=== PATIENT | male | born 1970 | race Caucasian/White ===

== ENCOUNTER 2017-09-11 05:40 | Day surgery (SDC) | payer OTHER ==
[~2017-09-11] VITALS: Ht 177.8 cm; Wt 115.6 kg
[~2017-09-11 05:40] MED LIST: MULTIVITAMIN1 EAC2 PO
[2017-09-11 06:08] VITALS: BP 131/78
[2017-09-11] MEDS ORDERED: NORCO 5/3251 TABLET PO (10:39)
[2017-09-11 12:30] VITALS: BP 102/58
[2017-09-11 16:18] VITALS: BP 106/66
[2017-09-11 20:00] VITALS: BP 112/59
[2017-09-11 23:39] VITALS: BP 106/60
[2017-09-12 04:50] VITALS: BP 108/62
[2017-09-12 07:19] VITALS: BP 109/69
[2017-09-12 07:21] LABS: HEMATOCRIT 40.6 % (38.0-50.0); HEMOGLOBIN 13.5 G/DL (12.5-16.6); MCHC 33.3 G/DL (30.0-36.0); MCV 96.2 FL (86-99); PLATELET COUNT 319 K/uL (156-360); RBC DIS.WIDTH-CV 13.8 % (11.8-14.6); RBC DIS.WIDTH-SD 48.7 % (39-53); RED BLOOD COUNT 4.22 M/uL (4.00-5.50); WHITE BLOOD COUNT 20.6 K/uL (4.1-10.2)
[2017-09-12 11:32] VITALS: BP 108/55
[2017-09-12 15:18] VITALS: BP 109/58
[2017-09-12 17:26] LABS: HEMOGLOBIN 14.2 G/DL (12.5-16.6); MCH 32.3 PG (29.0-34.0); MCHC 33.8 G/DL (30.0-36.0); MCV 95.7 FL (86-99); PLATELET COUNT 307 K/uL (156-360); RBC DIS.WIDTH-CV 13.9 % (11.8-14.6); RED BLOOD COUNT 4.39 M/uL (4.00-5.50); WHITE BLOOD COUNT 17.9 K/uL (4.1-10.2)
[2017-09-12 19:40] VITALS: BP 110/57
[2017-09-12 23:30] VITALS: BP 132/68
[2017-09-13 04:19] VITALS: BP 131/74
[2017-09-13 06:46] LABS: HEMOGLOBIN 14.1 G/DL (12.5-16.6); MCH 32.6 PG (29.0-34.0); MCHC 33.6 G/DL (30.0-36.0); MCV 97.2 FL (86-99); PLATELET COUNT 315 K/uL (156-360); RBC DIS.WIDTH-SD 50.4 % (39-53); RED BLOOD COUNT 4.32 M/uL (4.00-5.50); WHITE BLOOD COUNT 17.7 K/uL (4.1-10.2)
[2017-09-13 07:57] VITALS: BP 128/72
[2017-09-13 12:10] VITALS: BP 123/66
== END 2017-09-13 16:00 | disposition home or self-care (01) ==
LOC: SDC 05:40 → 2SOUTH 10:37 → 2EASTP 10:37 → 2SOUTH 10:37 → ENRESERV 10:38 → SDC 10:59 → ENRESERV 12:02 → 2EASTP 12:50 → SDC 13:10 → ENPENDDIS 09-13 → 2EASTP 09-13 16:00
PROVIDERS: Physician Assistant; Surgery
PROC: 0WUF4JZ Supplement Abdominal Wall with Synthetic Substitute, Percutaneous Endoscopic Approach (ICD-10-PCS; principal; 2017-09-11)
DX: K43.0 Incisional hernia with obstruction, without gangrene (principal)
CPT/HCPCS: 85027; C1781; G0378; J0131; J0330; J0690; J1100; J1170; J1885; J2001; J2250; J2405; J2710; J2765; J2795; J3475; J7120; S0020